=== PATIENT | male | born 1960 | race Two or more races ===

== ENCOUNTER 2024-10-17 11:32 | Emergency (ER) | payer SELFPAY ==
[~2024-10-17] VITALS: Ht 188 cm; Wt 82.0 kg
[2024-10-17 11:41] VITALS: TEMP 36.8; O2SAT 99
[2024-10-17] MEDS: BACITRACIN ZINC OINT UDPKT TOP ONE (12:53)
[2024-10-17] MEDS ORDERED: TOPUD PO (15:29)
[2024-10-17] MEDS ORDERED: MUPI15CR11 TP (15:31)
[2024-10-17] MEDS ORDERED: IBUP-2028 MT (15:31)
[2024-10-17 15:51] VITALS: BP 102/64; PULSE 54; RESP 16; O2SAT 100
== END 2024-10-17 15:51 | disposition home or self-care (01) ==
LOC: ER 11:32
DX: S01.81XA Laceration without foreign body of other part of head, initial encounter (principal); S80.212A Abrasion, left knee, initial encounter; W01.0XXA Fall on same level from slipping, tripping and stumbling without subsequent striking against object, initial encounter; Y93.89 Activity, other specified; Y92.89 Other specified places as the place of occurrence of the external cause; Y99.8 Other external cause status
CPT/HCPCS: 12001; 99283; Z7610 ×2